=== PATIENT | male | born 1995 | race Caucasian/White ===

== ENCOUNTER 2021-11-06 14:57 | Emergency (ER) | payer OTHER ==
[~2021-11-06] VITALS: Ht 167.6 cm; Wt 77.3 kg
[2021-11-06 15:01] VITALS: BP 162/98
== END 2021-11-06 16:28 | disposition left against medical advice (07) ==
LOC: EMS 15:06
DX: Z00.00 Encounter for general adult medical examination without abnormal findings (principal); Z53.21 Procedure and treatment not carried out due to patient leaving prior to being seen by health care provider